=== PATIENT | female | born 1955 | race Caucasian/White ===

== ENCOUNTER → 2020-09-27 | Outpatient (CLI) | payer BC ==
[~2020-09-27] MED LIST: ASPIR-LOW81 MG PO; BUSPIRONE HCL15 MG PO; IMDUR ER TAB 3030 MG PO; LIPITOR TAB 1010 MG PO; LISINOPRIL20 MG PO; LOPRESSOR 25 MG25 MG PO; NITROGLYCERIN0.4 MG SL; NORCO 5-325 TA1 EACH PO; PLETAL 100 MG100 MG PO; VITAMIN D31000 UNI1 PO; WELLBUTRIN XL300 M1 PO
== END ==
LOC: MAMO 08:47
DX: Z12.31 Encounter for screening mammogram for malignant neoplasm of breast (principal)
CPT/HCPCS: 77063; 77067

== ENCOUNTER 2021-01-10 01:11 | Emergency (ER) | payer BC ==
[2021-01-10] MEDS ORDERED: BACITRAYCIN PLU28 GM TP (02:14)
== END 2021-01-10 02:27 | disposition home or self-care (01) ==
LOC: ER1 01:11
DX: S50.11XA Contusion of right forearm, initial encounter (principal); I10 Essential (primary) hypertension; W22.8XXA Striking against or struck by other objects, initial encounter; Z88.2 Allergy status to sulfonamides
CPT/HCPCS: 73090; 99283

== ENCOUNTER 2022-03-04 21:33 | Observation (INO) | payer MEDICARE, BC ==
[~2022-03-04] VITALS: Ht 162.6 cm; Wt 85.5 kg
[~2022-03-04 21:33] MED LIST changes: +BACITRAYCIN PLU28 GM TP; -LIPITOR TAB 1010 MG PO; +LIPITOR20 MG PO; -LOPRESSOR 25 MG25 MG PO; +METOPROLOL SUC100 MG PO; -WELLBUTRIN XL300 M1 PO; +WELLBUTRIN XL300 MG PO
[2022-03-04 22:03] LABS: HEMOGLOBIN 12.5 gm/dl (12.3-15.3); RED BLOOD COUNT 4.09 M/UL (4.00-5.10); WHITE BLOOD COUNT 7.1 K/UL (4.5-11.0)
[2022-03-04 22:24] LABS: BUN/CREATININE RATIO 15 (0-10)
[2022-03-05] MEDS ORDERED: FLONASE 0.05% N16 GM (12:57)
[2022-03-05] MEDS ORDERED: AMLODIPINE BES2.5 MG PO (12:57)
[2022-03-05] MEDS ORDERED: AMLODIPINE BESYL5 MG PO (12:58)
[2022-03-05] MEDS ORDERED: CELECOXIB200 MG PO (12:58)
[2022-03-05] MEDS ORDERED: METFORMIN HCL500 MG PO (12:59)
[2022-03-05] MEDS ORDERED: DOCUSATE SODIU100 MG PO (13:00)
[2022-03-05] MEDS ORDERED: VITAMIN D21250 MCG PO (13:00)
[2022-03-05] MEDS ORDERED: CYCLOBENZAPRINE10 MG PO (13:01)
[2022-03-05] MEDS ORDERED: OMEPRAZOLE20 MG PO (13:03)
[2022-03-05] MEDS ORDERED: LEVOTHYROXINE75 MCG PO (13:03)
[2022-03-06] MEDS ORDERED: LOSARTAN POTASS50 MG PO (11:35)
[2022-03-06] MEDS ORDERED: METFORMIN HCL500 MG PO (11:35)
[2022-03-06] MEDS ORDERED: COREG25 MG PO (11:35)
[2022-03-06] MEDS ORDERED: ATORVASTATIN CA20 MG PO (11:35)
== END 2022-03-06 15:19 | disposition home or self-care (01) ==
LOC: ER1 21:33 → CDU 03-05 03:29 → MED SURG 4 03-05 03:29 → CDU 03-05 03:29 → MED SURG 4 03-05 07:09
PROVIDERS: Family Medicine; ADMIT Internal Medicine
DX: R07.89 Other chest pain (principal); R00.2 Palpitations; I16.0 Hypertensive urgency; I65.22 Occlusion and stenosis of left carotid artery; I10 Essential (primary) hypertension; E11.51 Type 2 diabetes mellitus with diabetic peripheral angiopathy without gangrene; E78.5 Hyperlipidemia, unspecified; J44.9 Chronic obstructive pulmonary disease, unspecified; F41.9 Anxiety disorder, unspecified; Z95.820 Peripheral vascular angioplasty status with implants and grafts; Z88.2 Allergy status to sulfonamides; Z91.040 Latex allergy status; Z87.891 Personal history of nicotine dependence; Z79.82 Long term (current) use of aspirin; Z79.1 Long term (current) use of non-steroidal anti-inflammatories (NSAID); Z79.890 Hormone replacement therapy; Z79.899 Other long term (current) drug therapy
CPT/HCPCS: ECHO; 71045; 78452; 80053; 82550; 82553; 82962; 84484; 85025; 85379; 93005; 93017; 93306; 99285; A9502; G0378; J2785; Q9967